=== PATIENT | male | born 2000 | race Caucasian/White ===

== ENCOUNTER 2024-04-11 03:26 | Emergency (ER) | payer SELFPAY ==
[~2024-04-11] VITALS: Ht 170.2 cm; Wt 81.8 kg
[2024-04-11 03:28] VITALS: BP 124/73; TEMP 97.7
[2024-04-11] MEDS ORDERED: CEPHALEXIN500 M1 PO (04:15)
[2024-04-11 04:32] VITALS: PULSE 74
== END 2024-04-11 04:35 | disposition home or self-care (01) ==
LOC: COL.ER 03:26 → EDBD 03:27 → COL.ER 04:35
DX: S61.214A Laceration without foreign body of right ring finger without damage to nail, initial encounter (principal); S61.216A Laceration without foreign body of right little finger without damage to nail, initial encounter; W25.XXXA Contact with sharp glass, initial encounter
CPT/HCPCS: J0690

== ENCOUNTER 2024-04-17 17:58 | Emergency (ER) | payer SELFPAY ==
[~2024-04-17] VITALS: Ht 162.6 cm; Wt 82.7 kg
[~2024-04-17 17:58] MED LIST: CEPHALEXIN500 M1 PO
[2024-04-17 18:10] VITALS: TEMP 98.3
[2024-04-17 19:58] VITALS: BP 126/69; PULSE 85
== END 2024-04-17 19:55 | disposition home or self-care (01) ==
LOC: COL.ER 17:58 → EDSTATUS 18:05 → COL.ER 19:55
DX: L60.0 Ingrowing nail (principal); B35.1 Tinea unguium